=== PATIENT | female | born 1995 | race Caucasian/White ===

== ENCOUNTER 2017-07-18 13:57 | Emergency (ER) | payer OTHER ==
[2017-07-18] MEDS ORDERED: NS 1,000 ML IV ONE (14:02)
--- NOTE | 2017-07-18 14:06 | EDPHY ---
H & P Time Seen by Provider: 07/18/17 14:02 HPI/ROS: CHIEF COMPLAINT: Syncope HISTORY OF PRESENT ILLNESS: 22-year-old female presents after syncopal episode. Onset of lower abdominal cramping this morning. The lower abdominal cramping was moderate to severe and associated with dizziness. The dizziness persisted in the she became concerned that she was going to have a syncopal episode. She called 911 because of dizziness and when she stood up to open the door, she had a syncopal episode. Blood pressure 60/p on EMS arrival. She currently has moderate lower abdominal cramping. Denies possibility of , not sexually active. She has had prior similar episodes of unclear etiology. Vasovagal episodes related to severe pain. She often has severe abdominal pain at the beginning or the end of her menses. She just finished her period yesterday. REVIEW OF SYSTEMS: complete 10 point ROS negative except at noted in the HPI - Physical Exam Exam: General Appearance: Alert, pale, appears in pain Eyes: Pupils equal and round, conjunctival pallor ENT, Mouth: Mucous membranes moist Neck: Normal inspection Respiratory: Lungs are clear to auscultation Cardiovascular: Regular bradycardia Gastrointestinal: Abdomen is soft, diffuse lower abdominal tenderness Neurological: A&O, nonfocal exam Skin: Warm and dry Extremities: Normal inspection Psychiatric: Mood and affect normal Constitutional: Initial Vital Signs Temperature (C) 36.8 C 07/18/17 13:57 Heart Rate 54 L 07/18/17 13:57 Respiratory Rate 16 07/18/17 13:57 Blood Pressure 68/38 L 07/18/17 13:57 O2 Sat (%) 98 07/18/17 13:57 O2 Delivery Mode Room Air Allergies/Adverse Reactions: No Known Allergies Allergy (Unverified 07/18/17 14:12) Home Medications: Medication Instructions Recorded NK [No Known Home Meds] 07/18/17 Medical Decision Making - Diagnostics EKG Interpretation: EKG interpreted by me reveals normal sinus rhythm, rate 51, no ST or T segment changes. Interpretation: Normal EKG Imaging Results: Pelvic/Renal Ultrasound 07/18/17 14:37 Impression: Normal ultrasound pelvis. Findings and recommendations discussed with Emergency Department physician, FELIX NEAL at 15:35 hour, 07/18/2017. Final report concurs with initial preliminary interpretation. Abdomen CT 07/18/17 15:49 Impression: 1. Query fluid overloading. 2. Query mild uncomplicated pancreatitis versus autoimmune pancreatitis (IgG4). 3. Proctitis versus edema related to rapid hydration 4. Inability to identify the appendix. A message was left for Dr. FELIX NEAL, at 07/18/2017 16:45 ED Course/Re-evaluation: This patient presents with lower abdominal pain and syncopal episode. Most concerning for ectopic . Stat test is negative. Stat ultrasound ordered to rule out ovarian torsion or other worrisome etiology IV normal saline 2 L given. After the 1st L of normal saline, the patient's blood pressure remained adequate. business services tech revealed normal sinus rhythm throughout. 3:45 p.m.-laboratory and ultrasound results discussed with the patient. She continues to have lower abdominal discomfort. Abdomen is soft, right lower quadrant tenderness present. CT scan of the abdomen pelvis ordered to rule out acute appendicitis. CT scan results discussed with the patient. Unclear etiology of periportal edema and rectal edema. She continues to have right lower quadrant tenderness. Dr. Marika Martin was consulted and saw the patient in the ED. He feels that she is safe and stable for discharge from her car office tomorrow for recheck. Toradol 15 mg IV given prior to discharge. Differential Diagnosis: Differential diagnosis includes though is not limited to cardiac dysrhythmia, CVA, TIA, GI bleed, sepsis, hypoglycemia. - Data Points Laboratory Results: Laboratory Results 07/18/17 14:43 07/18/17 14:43 Medications Given: Discontinued Medications Sodium Chloride (Ns) 1,000 mls @ 0 mls/hr IV EDNOW ONE; Wide Open PRN Reason: Protocol Stop: 07/18/17 14:03 Last Admin: 07/18/17 14:10 Dose: 1,000 mls Ketorolac Tromethamine (Toradol) 15 mg IVP EDNOW ONE Stop: 07/18/17 17:52 Last Admin: 07/18/17 18:00 Dose: Not Given Departure - Departure Disposition: Home, Routine, Self-Care Clinical Impression: Syncope Qualifiers: Syncope type: vasovagal syncope Qualified Code(s): R55 - Syncope and collapse Abdominal pain Qualifiers: Abdominal location: right lower quadrant Qualified Code(s): R10.31 - Right lower quadrant pain Condition: Good Instructions: Syncope (ED), Acute Abdominal Pain (ED) Additional Instructions: Follow-up with Dr. Martin in the office tomorrow. Sometimes we are unable to diagnose an obvious cause of abdominal pain in the Emergency Department. Based upon our evaluation today, we see no obvious explanation for your pain. Because more serious conditions can be difficult to diagnose early in the course of their presentation, we ask that you return to the Emergency Department in 12-24 hours for a recheck if you are still having pain. This is necessary to exclude the development of a more serious condition such as appendicitis or other intra-abdominal emergency. In the event your pain markedly increases before that time or you develop intractable vomiting or fever return to the Emergency Department immediately. Referrals: Varun Vasquez MD [Medical Doctor] - As per Instructions Jeff Martin MD [Medical Doctor] - 1 day without fail Stand Alone Forms: Work Excuse
--- NOTE | 2017-07-18 14:10 | CPEKG ---
Heart Rate: 51 RR Interval: 1176 QRSD Interval: 96 QT Interval: 512 QTC Interval: 472 QRS [place]: 76 T Wave [place]: 60 EKG Severity - ABNORMAL ECG - EKG Impression: Normal sinus rhythm Electronically Signed By: Halima Coleman 18-Jul-2017 21:31:51
[2017-07-18 14:52] LABS: PLATELET COUNT 171 10^3/uL (150-400)
[2017-07-18] MEDS ORDERED: IOPAMIDOL (ISOVUE-300) 100 ML BTL ONE (16:05)
[2017-07-18 16:49] VITALS: BP 109/70
[2017-07-18] MEDS ORDERED: KETOROLAC 15 MG/1 ML SDV IVP ONE (17:51)
== END 2017-07-18 18:04 | disposition home or self-care (01) ==
DX: R55 Syncope and collapse (principal); R10.31 Right lower quadrant pain; E86.9 Volume depletion, unspecified
CPT/HCPCS: Q9967